=== PATIENT | male | born 1960 | race Caucasian/White ===

== ENCOUNTER 2022-08-24 12:05 | Emergency (ER) | payer OTHER ==
[~2022-08-24] VITALS: Ht 167.6 cm; Wt 81.6 kg
[2022-08-24 12:15] VITALS: BP 146/103
--- NOTE | 2022-08-24 13:15 | NUR ---
PT SEEN BY DR VILLARREAL AT BEDSIDE
[2022-08-24] MEDS ORDERED: SULF1TAB48 PO (13:29)
[2022-08-24] MEDS ORDERED: CEPH500C2 PO (13:29)
[2022-08-24] MEDS ORDERED: IBUP-1955 PO (13:29)
--- NOTE | 2022-08-24 13:43 | NUR ---
Patient discharged to home in stable condition. Written and verbal after care instructions given. Patient verbalizes understanding of instruction.
== END 2022-08-24 13:43 | disposition home or self-care (01) ==
LOC: ER 12:12
DX: S00.86XA Insect bite (nonvenomous) of other part of head, initial encounter (principal); S20.469A Insect bite (nonvenomous) of unspecified back wall of thorax, initial encounter; L03.211 Cellulitis of face; L03.312 Cellulitis of back [any part except buttock and flank]; L02.01 Cutaneous abscess of face; L02.212 Cutaneous abscess of back [any part, except buttock and flank]; I10 Essential (primary) hypertension; Z79.899 Other long term (current) drug therapy; W57.XXXA Bitten or stung by nonvenomous insect and other nonvenomous arthropods, initial encounter; Y93.89 Activity, other specified; Y92.89 Other specified places as the place of occurrence of the external cause; Y99.8 Other external cause status

== ENCOUNTER 2022-09-30 05:18 | Inpatient (IN) | payer OTHER ==
[~2022-09-30] VITALS: Ht 170.2 cm; Wt 86.6 kg
[~2022-09-30 05:18] MED LIST: CEPH500C2 PO; IBUP-1955 PO; SULF1TAB48 PO
--- NOTE | 2022-09-30 06:10 | NUR ---
BIBWIFE. MID UPPER BACK WOUND WITH YELLOW DISCHARGE X AUG 21. ON CLYNDAMYCIN YESTERDAY. PT IS ALERT, AMBULATORY. ABLE TO MAKE NEEDS KNOWN. PLACED COMFORTABLY IN BED. VITALS CHECKED
[2022-09-30] MEDS ORDERED: ONDANSETRON HCL/PF 4 MG/2 ML VIAL ONE (06:39)
--- NOTE | 2022-09-30 06:51 | NUR ---
COVID AND MRSA SWAB DONE AND SENT TO LAB
--- NOTE | 2022-09-30 06:56 | NUR ---
WOUND CULTURE DONE AT MIDBACK THEN SENT TO LAB
--- NOTE | 2022-09-30 06:56 | NUR ---
EKG DONE AT BEDSIDE
[2022-09-30] MEDS ORDERED: PIPERACILLIN /TAZOBACTAM 3.375 G VIAL IV ONE (06:58)
[2022-09-30] MEDS ORDERED: IV NS 0.9% 1,000 ML IV ONE (07:00)
[2022-09-30] MEDS ORDERED: PIPERACILLIN /TAZOBACTAM 3.375 G in IV D5W 50 ML IV ONE (07:00)
[2022-09-30] MEDS ORDERED: VANCOMYCIN 1 GM in IV D5W 250 ML IV ONE (07:00)
[2022-09-30] MEDS ORDERED: ONDANSETRON HCL/PF 4 MG/2 ML VIAL IV ONE (07:00)
[2022-09-30 07:27] LABS: BASOPHILS % (AUTO) 0.1 % (0.0-2.0); HEMATOCRIT 21 % (39-51); LYMPHOCYTES # (AUTO) 0.8 K/uL (0.8-4.8); LYMPHOCYTES % (AUTO) 6.7 % (20.0-44.0); MEAN CORPUSCULAR HGB CONC 33 g/dl (31.0-36.0); MEAN CORPUSCULAR VOLUME 97 fL (80-96); MONOCYTES # (AUTO) 0.9 K/uL (0.1-1.30); MONOCYTES % (AUTO) 8.1 % (2.0-12.0); NEUTROPHILS # (AUTO) 9.8 K/uL (1.8-8.9); NEUTROPHILS % (AUTO) 85.1 % (43.0-81.0); PLATELET COUNT (AUTO) 186 K/uL (150-450); RED BLOOD CELL COUNT(AUTO) 2.15 MIL/uL (4.5-6.0); WHITE BLOOD COUNT (AUTO) 11.5 K/uL (4.3-11.0)
[2022-09-30 07:33] LABS: HEMOGLOBIN 6.9 g/dL (13.5-17.5)
--- NOTE | 2022-09-30 07:33 | NUR ---
hemoglobin 6.9 , made aware
[2022-09-30 07:40] LABS: BILIRUBIN,DIRECT 0.1 mg/dL (0.0-0.2); BILIRUBIN,TOTAL 0.3 mg/dL (0.2-1.0); CREATININE 0.3 mg/dL (0.6-1.3); TOTAL PROTEIN, SERUM 3.3 g/dL (6.4-8.2)
[2022-09-30 07:47] LABS: ALBUMIN 1.2 g/dL (3.4-5.0); CALCIUM, SERUM 4.4 mg/dL (8.5-10.1); POTASSIUM 1.7 mmol/L (3.5-5.1)
[2022-09-30] MEDS ORDERED: LISI20TA30 PO (07:59)
[2022-09-30] MEDS ORDERED: SIMV-46 PO (07:59)
--- NOTE | 2022-09-30 08:03 | NUR ---
ordered to redraw blood
[2022-09-30 08:14] LABS: MAGNESIUM 2.2 mg/dL (1.8-2.4); PHOSPHORUS 3.2 mg/dL (2.5-4.9)
--- NOTE | 2022-09-30 08:33 | NUR ---
JOB FROM [facility] [phone] OPTION 2
--- NOTE | 2022-09-30 08:46 | NUR ---
PATIENT GOING TO ROOM 109
--- NOTE | 2022-09-30 08:53 | NUR ---
ADMITTING MADE AWARE.
--- NOTE | 2022-09-30 09:07 | NUR ---
REPORT GIVEN TO EFRAÍN MCKENZIE
[2022-09-30 09:29] LABS: BASOPHILS % (AUTO) 0.2 % (0.0-2.0); EOSINOPHILS % (AUTO) 0.1 % (0.0-6.0); HEMATOCRIT 36 % (39-51); LYMPHOCYTES # (AUTO) 1.4 K/uL (0.8-4.8); LYMPHOCYTES % (AUTO) 7.2 % (20.0-44.0); MEAN CORPUSCULAR HGB CONC 33 g/dl (31.0-36.0); MEAN CORPUSCULAR VOLUME 96 fL (80-96); MONOCYTES # (AUTO) 1.5 K/uL (0.1-1.30); MONOCYTES % (AUTO) 7.9 % (2.0-12.0); NEUTROPHILS % (AUTO) 84.6 % (43.0-81.0); PLATELET COUNT (AUTO) 315 K/uL (150-450); RED BLOOD CELL COUNT(AUTO) 3.71 MIL/uL (4.5-6.0); WHITE BLOOD COUNT (AUTO) 18.9 K/uL (4.3-11.0)
--- NOTE | 2022-09-30 09:30 | NUR ---
waiting for repeat blood works results requested by ER md . hold the transfer until resulted
[2022-09-30 09:54] LABS: HEMOGLOBIN 11.8 g/dL (13.5-17.5)
[2022-09-30 10:38] LABS: BILIRUBIN,TOTAL 0.7 mg/dL (0.2-1.0); CREATININE 0.9 mg/dL (0.6-1.3); TOTAL PROTEIN, SERUM 7.1 g/dL (6.4-8.2)
--- NOTE | 2022-09-30 10:45 | NUR ---
repeat blood works resulted , made aware of the results, pt ready to be transfer to inpatient room
[2022-09-30 10:48] LABS: POTASSIUM 3.8 mmol/L (3.5-5.1)
[2022-09-30 10:49] LABS: CALCIUM, SERUM 8.4 mg/dL (8.5-10.1)
[2022-09-30 11:03] LABS: ALBUMIN 2.6 g/dL (3.4-5.0)
--- NOTE | 2022-09-30 11:24 | NUR ---
Patient transferred to [facility]-, report given to MAGALY Paul. All care endorsed.
--- NOTE | 2022-09-30 12:57 | NUR ---
WOUND CARE CONSULT: PT PRESENTS WITH PAINFUL RAISED RED LESION WITH PURULENT DRAINAGE, PRESENT ON ADMISSION. DR GREENE CALLED FOR SURGICAL CONSULT. IN AGREEMENT WITH PLAN OF CARE.
[2022-09-30] MEDS ORDERED: MAG HYDROX/AL HYDROX/SIMETH 30 ML UDC PO PRN (13:00)
[2022-09-30] MEDS ORDERED: Z GUARD REMEDY 4 OZ OINT TP PRN (13:00)
[2022-09-30] MEDS ORDERED: ONDANSETRON HCL/PF 4 MG/2 ML VIAL IVP PRN (13:00)
[2022-09-30] MEDS ORDERED: ACETAMINOPHEN 325 MG TABLET PO PRN (13:00)
[2022-09-30] MEDS: ZOSYN IVPB 3.375 G in IV D5W 50ml IV SCH ×2 (14:31→18:02)
[2022-09-30] MEDS: IV NS 0.9% 1,000 ML IV PRN (14:31)
[2022-09-30] MEDS: ENOXAPARIN SODIUM 40 MG/0.4 ML DISP.SYRIN SQ SCH (14:33)
[2022-09-30 16:00] VITALS: BP 137/84
--- NOTE | 2022-09-30 18:29 | NUR ---
RN CLOSING NOTES PATIENT RESTING IN BED. ALERT AND ORIENTED X 4. ON ROOM AIR, NO SOB OR RESPIRATORY DISTRESS. IV ACCESS LEFT HAND 18G RUNNING NS AT 75/HR. SAFETY MEASURES IN PLACE PER HOSPITAL POLICY. CALL LIGHT WITHIN REACH. WILL ENDORSE TO DISPLAY MECHANIC RN.
--- NOTE | 2022-09-30 19:30 | NUR ---
RN NOTED Received patient in bed, AO x 4, in no acute distress, breathing unlabored, saturation at 98% on room air, HR is 94. IV line at L Hand 18g patent and flushing well, NS infusing at 75 ml/hr. Noted wound at upper back with moderate amount of yellowish drainage, dressing in place. Safety measures in place, bed is locked and at lowest position, HOB elevated, call light within reach of patient. Will cont to monitor and reassess
[2022-09-30 20:00] VITALS: BP 120/67
[2022-09-30] MEDS: VANCOMYCIN 1.25 GM in IV D5W 250 ML IV SCH (20:10)
[2022-09-30] MEDS: ZOLPIDEM TARTRATE 5 MG TABLET PO PRN (21:28)
[2022-10-01] MEDS: ZOSYN IVPB 3.375 G in IV D5W 50ml IV SCH ×4 (00:03→18:51)
[2022-10-01 04:00] VITALS: BP 136/83
[2022-10-01] MEDS ORDERED: MUPIROCIN OINT 2% 22 GM TUBE ONE (05:30)
[2022-10-01] MEDS: MUPIROCIN OINT 2% 22 GM TUBE NS SCH ×3 (05:35→20:09)
[2022-10-01 05:51] LABS: BASOPHILS % (AUTO) 0.1 % (0.0-2.0); EOSINOPHILS % (AUTO) 0.1 % (0.0-6.0); HEMATOCRIT 35 % (39-51); HEMOGLOBIN 11.3 g/dL (13.5-17.5); LYMPHOCYTES # (AUTO) 1.1 K/uL (0.8-4.8); LYMPHOCYTES % (AUTO) 6.4 % (20.0-44.0); MEAN CORPUSCULAR HGB CONC 33 g/dl (31.0-36.0); MEAN CORPUSCULAR VOLUME 96 fL (80-96); MONOCYTES # (AUTO) 1.5 K/uL (0.1-1.30); MONOCYTES % (AUTO) 8.8 % (2.0-12.0); NEUTROPHILS # (AUTO) 14.3 K/uL (1.8-8.9); NEUTROPHILS % (AUTO) 84.6 % (43.0-81.0); PLATELET COUNT (AUTO) 314 K/uL (150-450); RED BLOOD CELL COUNT(AUTO) 3.58 MIL/uL (4.5-6.0)
[2022-10-01 06:03] LABS: CALCIUM, SERUM 8.4 mg/dL (8.5-10.1); MAGNESIUM 2.3 mg/dL (1.8-2.4); PHOSPHORUS 3.1 mg/dL (2.5-4.9); POTASSIUM 4.2 mmol/L (3.5-5.1)
[2022-10-01] MEDS: IV NS 0.9% 1,000 ML IV PRN (06:25)
--- NOTE | 2022-10-01 07:15 | NUR ---
RN OPENING NOTE PATIENT RESTING IN A BED. ALERT AND ORIENTED X 4. ON ROOM AIR, NO SOB OR RESPIRATORY DISTRESS. IV ACCESS LEFT HAND 18G, FLUSHES WELL. SAFETY MEASURES IN PLACE PER HOSPITAL POLICY. CALL LIGHT WITHIN REACH. WILL CONTINUE TO MONITOR.
[2022-10-01] MEDS: PANTOPRAZOLE 40 MG TABLET.DR PO SCH (07:20)
[2022-10-01 08:00] VITALS: BP 126/71
[2022-10-01] MEDS: LISINOPRIL (20MG) 20 MG TABLET PO SCH (09:19)
[2022-10-01] MEDS: VANCOMYCIN 1.25 GM in IV D5W 250 ML IV SCH (09:21)
[2022-10-01] MEDS: ENOXAPARIN SODIUM 40 MG/0.4 ML DISP.SYRIN SQ SCH (12:30)
[2022-10-01 16:00] VITALS: BP 121/75
--- NOTE | 2022-10-01 16:00 | NUR ---
GOT A CALL FROM [facility] RE: PTs MERSA RESULT POSITIVE. FROM OUR LAB:PTs CULTURE CAME BACK POSITIVE FOR COCCI GRAM+
[2022-10-01] MEDS: SIMVASTATIN 20 MG TABLET PO SCH (17:46)
--- NOTE | 2022-10-01 18:48 | NUR ---
RN CLOSING NOTE PATIENT RESTING IN BED. ALERT AND ORIENTED X 4. ON ROOM AIR, NO SOB OR RESPIRATORY DISTRESS. IV ACCESS LEFT HAND 18G, FLUSHES WELL. SAFETY MEASURES IN PLACE PER HOSPITAL POLICY. CALL LIGHT WITHIN REACH. WILL ENDORSE TO FIELD MARKETING DIRECTOR RN.
[2022-10-01 20:00] VITALS: BP 127/68
[2022-10-01] MEDS: VANCOMYCIN 1 GM in IV D5W 250 ML IV SCH (20:04)
[2022-10-01] MEDS: HYDROCODONE/APAP 5/325MG TABLET PO PRN (20:09)
--- NOTE | 2022-10-01 20:10 | NUR ---
KISHOR/BILL CLERK PT C/O OF PAIN TO BACK, 1 TAB NORCO WAS GIVEN FOR PAIN. WILL MONITOR THIS
[2022-10-02] MEDS: ZOSYN IVPB 3.375 G in IV D5W 50ml IV SCH ×4 (01:07→18:02)
[2022-10-02] MEDS: IV NS 0.9% 1,000 ML IV PRN ×3 (02:18→18:03)
[2022-10-02 04:00] VITALS: BP 121/76
--- NOTE | 2022-10-02 04:57 | NUR ---
KISHOR/PAPER AND PRINTS RESTORER PT'S BROTHER CALLED [facility], ASKED FOR UPDATE. THIS WAS GIVEN.
[2022-10-02] MEDS ORDERED: diphenhydrAMINE HCL 50 MG/ML VIAL IV ONE ×2 (06:00→06:30)
[2022-10-02] MEDS: HYDROCODONE/APAP 5/325MG TABLET PO PRN (06:09)
--- NOTE | 2022-10-02 06:32 | NUR ---
KISHOR/SENIOR FIRE PROTECTION ENGINEER PT C/O OF PAIN GAVE NORCO FOR PAIN RATED 10/10. AIMEE GRULLON PT PT EXPRESSED CONCERN FOR SWELLING THAT IS GOING UP NECK, GAVE ONE TIME BENADRYL.
[2022-10-02] MEDS: PANTOPRAZOLE 40 MG TABLET.DR PO SCH (06:43)
--- NOTE | 2022-10-02 06:45 | NUR ---
KISHOR/BACKEND TESTER PT REFUSED BENADRYL AT THIS TIME
[2022-10-02 07:09] LABS: BASOPHILS % (AUTO) 0.2 % (0.0-2.0); EOSINOPHILS % (AUTO) 0.6 % (0.0-6.0); HEMATOCRIT 34 % (39-51); LYMPHOCYTES # (AUTO) 1.2 K/uL (0.8-4.8); LYMPHOCYTES % (AUTO) 8.9 % (20.0-44.0); MEAN CORPUSCULAR HGB CONC 33 g/dl (31.0-36.0); MEAN CORPUSCULAR VOLUME 96 fL (80-96); MONOCYTES # (AUTO) 1.3 K/uL (0.1-1.30); MONOCYTES % (AUTO) 9.2 % (2.0-12.0); NEUTROPHILS # (AUTO) 11.3 K/uL (1.8-8.9); NEUTROPHILS % (AUTO) 81.1 % (43.0-81.0); PLATELET COUNT (AUTO) 364 K/uL (150-450); RED BLOOD CELL COUNT(AUTO) 3.52 MIL/uL (4.5-6.0)
--- NOTE | 2022-10-02 07:20 | NUR ---
RN OPENING NOTE PATIENT RESTING IN A BED. ALERT AND ORIENTED X 4. ON ROOM AIR, NO SOB OR RESPIRATORY DISTRESS. GOT REPORT FROM LITHOGRAPHIC PRESS OPERATOR APPRENTICE THAT PT HAS MILD NECK SWELLING RAISING UP FROM AFFECTED UPPER BACK WOUND, AND PT REFUSED GET BENADRYL PRESCRIBED TO HIM PRN. PER PT CONDITION IS NOW IMPROVING, WILL NOTIFY THE DOCTOR AND CONTINUE TO MONITOR. IV ACCESS LEFT HAND 18G, FLUSHES WELL. SAFETY MEASURES IN PLACE PER HOSPITAL POLICY. CALL LIGHT WITHIN REACH.
[2022-10-02 07:28] LABS: CALCIUM, SERUM 8.6 mg/dL (8.5-10.1); CREATININE 0.9 mg/dL (0.6-1.3); MAGNESIUM 2.6 mg/dL (1.8-2.4); PHOSPHORUS 3.1 mg/dL (2.5-4.9); POTASSIUM 3.9 mmol/L (3.5-5.1)
[2022-10-02 08:03] VITALS: BP 119/73
[2022-10-02] MEDS: LISINOPRIL (20MG) 20 MG TABLET PO SCH (09:09)
[2022-10-02] MEDS: VANCOMYCIN 1 GM in IV D5W 250 ML IV SCH (09:09)
[2022-10-02] MEDS: MUPIROCIN OINT 2% 22 GM TUBE NS SCH ×2 (09:09→21:40)
[2022-10-02] MEDS ORDERED: DEXTROSE 50%-WATER 50 ML DISP.SYRIN IV PRN (10:00)
[2022-10-02] MEDS: BLOOD SUGAR DIAGNOSTIC 1 EACH STRIP IN SCH ×3 (11:24→21:41)
--- NOTE | 2022-10-02 12:00 | NUR ---
PATIENT BEEN SEEN BY DR RUIZ, AND SCHEDULED FOR INCISION DRAINAGE AND DEBRIDEMENT FOR TOMORROW. PT WILL SIGN CONSENT FOR PROCEDURE AND ANAESTHESIA, NPO AFTER MIDNIGHT.
[2022-10-02] MEDS: ENOXAPARIN SODIUM 40 MG/0.4 ML DISP.SYRIN SQ SCH (13:00)
--- NOTE | 2022-10-02 13:30 | NUR ---
HOLD ROMI D/T TOMORROWS PROCEDURE.
[2022-10-02 15:48] LABS: THYROID STIMULATING HORMONE 0.93 uIU/mL (0.358-3.74)
[2022-10-02 15:54] LABS: D-DIMER 1.31 mg/L(FEU (0.17-0.50)
[2022-10-02 16:03] VITALS: BP 122/69
[2022-10-02] MEDS: SIMVASTATIN 20 MG TABLET PO SCH (17:05)
--- NOTE | 2022-10-02 18:58 | NUR ---
RN CLOSING NOTE PATIENT RESTING IN BED. ALERT AND ORIENTED X 4. ON ROOM AIR, NO SOB OR RESPIRATORY DISTRESS. IV ACCESS LEFT HAND 18G, FLUSHES WELL. PATIENT SCHEDULED FOR INCISION AND DRAINAGE, POSSIBLE DEBRIDEMENT FOR TOMORROW AM, ALSO FOR CT CHEST AND ABDOMEN PRIOR TO PROCEDURE. NPO AFTER MIDNIGHT, DO NOT ADMINISTER LOVENOX. WILL ENDORSE TO HIGH TENSION TESTER RN.
--- NOTE | 2022-10-02 19:40 | NUR ---
RN OPENING NOTE Received patient in bed, A/O x 4, in no acute distress, breathing unlabored, saturation at 98% on room air, IV line at L Hand 18g patent and flushing well, NS infusing at 75 ml/hr. Noted wound at upper back with moderate amount of yellowish drainage, dressing in place. Safety measures in place, bed is locked and at lowest position, HOB elevated, call light within reach of patient. Will cont to monitor throughout the shift.
[2022-10-02] MEDS: VANCOMYCIN 1.25 GM in IV D5W 250 ML IV SCH (21:43)
[2022-10-02] MEDS: INSULIN REGULAR, HUMAN 100 UNIT/ML 3 ML VIAL SQ PRN (21:58)
[2022-10-02] MEDS: ZOLPIDEM TARTRATE 5 MG TABLET PO PRN (22:30)
[2022-10-02] MEDS: MAGNESIUM HYDROXIDE 30 ML UDC PO PRN (22:33)
[2022-10-03] VITALS: BP 109/68
[2022-10-03] MEDS: ZOSYN IVPB 3.375 G in IV D5W 50ml IV SCH ×4 (01:13→18:01)
--- NOTE | 2022-10-03 07:00 | NUR ---
RN CLOSING NOTE Patient in bed, A/O x 4, in no acute distress, breathing unlabored, saturation at 98% on room air, IV line at L Hand 18g patent and flushing well, NS infusing at 75 ml/hr. All due meds given, Kept pt NPO post mn, Safety measures in place, bed is locked and at lowest position, HOB elevated, call light within reach of patient. Will endorse to am shift nurse for continuity of care.
--- NOTE | 2022-10-03 07:22 | NUR ---
RN OPENING NOTES: RECEIVED PATIENT IN BED, AWAKE, ALERT ORIENTED X 4, NO RESPIRATORY DISTRESS NOTED, BREATHING EVEN AND UNLABORED. ON RA WITH OXYGEN SATURATION OF 97%. HAS IV ACCESS ON LEFT UPPER ARM, PATENT AND FLUSHES WELL, SITE WITH NO S/S INFILTRATION NOTED. ALL SAFETY MEASURES IN PLACE. PATIENT REMAINS NPO FOR HIS PROCEDURE TODAY AND IS A LITTLE BIT ANXIOUS, REASSURED PATIENT. BED LOCKED AND IN LOWEST POSITION WITH BED ALARM ON. CALL LIGHT WITHIN REACH AND INSTRUCTED PATIENT TO PLEASE CALL FOR ASSISTANCE NEEDED. WILL CONTINUE TO MONITOR PATIENT THROUGHOUT SHIFT.
[2022-10-03] MEDS: PANTOPRAZOLE 40 MG TABLET.DR PO SCH (07:30)
[2022-10-03 07:37] LABS: BASOPHILS % (AUTO) 0.4 % (0.0-2.0); EOSINOPHILS % (AUTO) 1.2 % (0.0-6.0); HEMATOCRIT 33 % (39-51); HEMOGLOBIN 10.8 g/dL (13.5-17.5); LYMPHOCYTES # (AUTO) 1.8 K/uL (0.8-4.8); LYMPHOCYTES % (AUTO) 18.5 % (20.0-44.0); MEAN CORPUSCULAR HGB CONC 33 g/dl (31.0-36.0); MEAN CORPUSCULAR VOLUME 95 fL (80-96); MONOCYTES # (AUTO) 0.9 K/uL (0.1-1.30); MONOCYTES % (AUTO) 9.3 % (2.0-12.0); NEUTROPHILS # (AUTO) 6.9 K/uL (1.8-8.9); NEUTROPHILS % (AUTO) 70.6 % (43.0-81.0); PLATELET COUNT (AUTO) 388 K/uL (150-450); RED BLOOD CELL COUNT(AUTO) 3.41 MIL/uL (4.5-6.0); WHITE BLOOD COUNT (AUTO) 9.8 K/uL (4.3-11.0)
[2022-10-03 08:00] VITALS: BP 147/79
[2022-10-03 08:05] LABS: CALCIUM, SERUM 8.5 mg/dL (8.5-10.1); CREATININE 0.8 mg/dL (0.6-1.3); MAGNESIUM 2.4 mg/dL (1.8-2.4); PHOSPHORUS 3.3 mg/dL (2.5-4.9); POTASSIUM 3.7 mmol/L (3.5-5.1)
[2022-10-03] MEDS: BLOOD SUGAR DIAGNOSTIC 1 EACH STRIP IN SCH ×4 (08:08→21:51)
[2022-10-03] MEDS: LISINOPRIL (20MG) 20 MG TABLET PO SCH (08:58)
[2022-10-03] MEDS: VANCOMYCIN 1.25 GM in IV D5W 250 ML IV SCH ×2 (09:00→21:21)
--- NOTE | 2022-10-03 09:00 | NUR ---
SPOKE WITH RITA AT THE PHARMACY AND SAID THAT IT IS OK TO GIVEN VANCO 1.25 GM PREVIOUSLY ORDERED
[2022-10-03] MEDS: MUPIROCIN OINT 2% 22 GM TUBE NS SCH ×2 (09:25→21:21)
[2022-10-03 10:07] LABS: IMMUNOGLOBULIN A, SERUM 252 mg/dL (61-437); IMMUNOGLOBULIN G, SERUM 695 mg/dL (603-1613); IMMUNOGLOBULIN M, SERUM 36 mg/dL (20-172)
--- NOTE | 2022-10-03 11:08 | NUR ---
PATIENT WAS PICKED UP FOR HIS PROCEDURE TODAY AND LEFT VIA HOSPITAL BED ACCOMPANIED BY TWO NURSES. PATENT LEFT IN NO ACUTE DISTRESS
[2022-10-03] MEDS ORDERED: FENTANYL PF 100MCG/2ML AMPUL ONE (11:28)
[2022-10-03] MEDS ORDERED: MIDAZOLAM HCL 2 MG/2ML VIAL ONE (11:28)
[2022-10-03] MEDS ORDERED: LIDOCAINE 1% INJ 50 ML MDV IJ ONE (11:47)
[2022-10-03] MEDS ORDERED: BUPIVACAINE MPF 0.5% W/EPI INJ 30 ML VIAL ONE (11:47)
[2022-10-03] MEDS ORDERED: PHYTONADIONE INJ 10 MG/1 ML AMPUL ONE (12:13)
[2022-10-03] MEDS ORDERED: HYDROMORPHONE 1 MG/1 ML DISP.SYRIN ONE ×2 (12:22→12:38)
[2022-10-03] MEDS: ENOXAPARIN SODIUM 40 MG/0.4 ML DISP.SYRIN SQ SCH (13:00)
--- NOTE | 2022-10-03 13:35 | NUR ---
RECEIVED POST OP ORDERS FOR WOUND PACK TO BE CHANGED AFTER 72 HOURS AND RESUME PRE-OP DIET. ORDERS NOTED AND CARRIED OUT
--- NOTE | 2022-10-03 13:35 | NUR ---
PATIENT CAME BACK AFTER THE PROCEDURE. AWAKE, ALERT, ORIENTED X 4. DRESSING ON THE PATIENT'S BACK IS CLEAN AND DRY. V/S FOLLOWS 137/79, HR 72 TEMP 97.2, ON RA WITH OXYGEN SATURATION OF 96%. PATIENT REPOSITIONED FOR COMFORT.
[2022-10-03] MEDS: INSULIN REGULAR, HUMAN 100 UNIT/ML 3 ML VIAL SQ PRN ×3 (13:49→21:57)
--- NOTE | 2022-10-03 14:01 | NUR ---
DR CRAWLEY NOTIFIED TO HOLD OFF LOVENOX FOR NOW.
--- NOTE | 2022-10-03 14:31 | NUR ---
PATIENT HAS NOT HAD HI CT SCAN. CALLED RADIOLOGY @ EXT [id number], SPOKE WITH AKIN BUT UNABLE TO GIVE A TIME FRAME FOR PATIENT'S CT SCAN
--- NOTE | 2022-10-03 15:01 | NUR ---
PATIENT IS BEING PICKED UP TO HAVE HIS CT SCAN DONE,. PATIENT LEFT VIA WHEELCHAIR ACCOMPANIED BY TWO PERSONNEL VIA WHEELCHAIR. PATIENT IN NO ACUTE DISTRESS
[2022-10-03] MEDS ORDERED: IOHEXOL-300 100 ML VIAL IV ONE (15:03)
--- NOTE | 2022-10-03 15:36 | NUR ---
PATIENT'S BACK TO THE ROOM AND PLACED IN BED. PATIENT IN NO ACUTE DISTRESS NOTED.
[2022-10-03 16:00] VITALS: BP 141/84
[2022-10-03 17:06] LABS: *SPE A/G RATIO 0.7 (0.7-1.7); *SPE ALPHA-1-GLOBULIN 0.5 g/dL (0.0-0.4); *SPE ALPHA-2-GLOBULIN 1.4 g/dL (0.4-1.0); *SPE BETA GLOBULIN 1.2 g/dL (0.7-1.3); *SPE M-SPIKE Not Observed g/dL (Not Observed)
[2022-10-03] MEDS: SIMVASTATIN 20 MG TABLET PO SCH (17:12)
--- NOTE | 2022-10-03 18:47 | NUR ---
GIG TENDER CLOSING NOTES: PATIENT IN BED, AWAKE, ALERT ORIENTED X 4, NO RESPIRATORY DISTRESS NOTED THROUGHOUT SHIFT. REMAINS ON RA THE ENTIRE TIME WITH OXYGEN SATURATION OF 95-97%. NO C/O PAIN OR DISCOMFORT AT THIS TIME. IV ACCESS ON RIGHT FOREARM RUNNING WITH NS @ 75 ML/HR, IV SITE PATENT, WITH NO S/S INFILTRATION NOTED. PATIENT WAS ABLE TO TOLERATE HIS CARDIAC DIET PER PREVIOUS ORDER. DRESSING CLEAN AND DRY ON HIS RIGHT UPPER BACK, NO FEVER NOTED THE ENTIRE SHIFT. ALL SAFETY MEASURES IMPLEMENTED. BED LOCKED AND IN LOWEST POSITION WITH BED ALARM ON. CALL LIGHT WITHIN REACH. WILL ENDORSE TO INCOMING NURSE FOR CONTINUITY OF CARE.
[2022-10-03] MEDS: MAGNESIUM HYDROXIDE 30 ML UDC PO PRN (21:32)
[2022-10-04 00:04] VITALS: BP 135/86
[2022-10-04] MEDS: ZOSYN IVPB 3.375 G in IV D5W 50ml IV SCH ×4 (01:13→18:02)
[2022-10-04] MEDS: PANTOPRAZOLE 40 MG TABLET.DR PO SCH (06:35)
[2022-10-04 07:03] LABS: BASOPHILS % (AUTO) 0.3 % (0.0-2.0); HEMATOCRIT 30 % (39-51); LYMPHOCYTES # (AUTO) 2.6 K/uL (0.8-4.8); LYMPHOCYTES % (AUTO) 30.9 % (20.0-44.0); MEAN CORPUSCULAR HGB CONC 33 g/dl (31.0-36.0); MEAN CORPUSCULAR VOLUME 96 fL (80-96); MONOCYTES # (AUTO) 0.8 K/uL (0.1-1.30); MONOCYTES % (AUTO) 9.8 % (2.0-12.0); NEUTROPHILS # (AUTO) 4.8 K/uL (1.8-8.9); PLATELET COUNT (AUTO) 390 K/uL (150-450); RED BLOOD CELL COUNT(AUTO) 3.17 MIL/uL (4.5-6.0); WHITE BLOOD COUNT (AUTO) 8.3 K/uL (4.3-11.0)
[2022-10-04 07:10] LABS: CALCIUM, SERUM 8.4 mg/dL (8.5-10.1); CREATININE 0.9 mg/dL (0.6-1.3); MAGNESIUM 2.4 mg/dL (1.8-2.4); PHOSPHORUS 3.3 mg/dL (2.5-4.9); POTASSIUM 3.8 mmol/L (3.5-5.1)
--- NOTE | 2022-10-04 07:47 | NUR ---
WOUND CARE CONSULT: PT PRESENTS WITH SURGICAL DRESSING TO UPPER BACK WHICH IS NOT TO BE REMOVED TIL 10/06 PER SURGEON. BACK DRESSING IS DRY AND INTACT. WILL FOLLOW. MD IN AGREEMENT WITH PLAN OF CARE.
[2022-10-04 08:00] VITALS: BP 134/84
--- NOTE | 2022-10-04 08:22 | NUR ---
ms rn note patient in bed, alert , oriented on ra no sob noted at this time, on ivf as ordered, bed in lowest and locked position , seen by wound nurse call light within reach hl rt ga intact and flushed well, will cont to monitor, no c]o pain or discomfort at this time
[2022-10-04] MEDS: MUPIROCIN OINT 2% 22 GM TUBE NS SCH ×2 (08:46→20:48)
[2022-10-04] MEDS: LISINOPRIL (20MG) 20 MG TABLET PO SCH (08:47)
[2022-10-04] MEDS: BLOOD SUGAR DIAGNOSTIC 1 EACH STRIP IN SCH ×4 (08:48→22:33)
[2022-10-04] MEDS: VANCOMYCIN 1.25 GM in IV D5W 250 ML IV SCH ×2 (09:16→20:47)
--- NOTE | 2022-10-04 11:10 | NUR ---
AVIONICS SYSTEM ENGINEER NOTE TYLENOL PO GIVEN C\O RT UPPER BACK PAIN 6\10- ,ALSO WOUND CARE NURSE AT BEDSIDE SEEN PATIENT ,WILL MONITOR
[2022-10-04] MEDS: INSULIN REGULAR, HUMAN 100 UNIT/ML 3 ML VIAL SQ PRN ×2 (12:09→22:35)
[2022-10-04] MEDS: ENOXAPARIN SODIUM 40 MG/0.4 ML DISP.SYRIN SQ SCH (12:50)
[2022-10-04] MEDS: ALPRAZOLAM 0.25 MG TABLET PO PRN (12:51)
--- NOTE | 2022-10-04 12:54 | NUR ---
ms rn note Xanax po 0.5 mg po given as ordered boat deckhand at bedside blood cx done
--- NOTE | 2022-10-04 15:00 | NUR ---
MS RN NOTE ROUNDS MADE . ALL NEEDS ATTENDED, LINEN CHANGED ,UP ON CHAIR WILL CONT TO MONITOR WOUND CARE DONE
[2022-10-04] MEDS: IV NS 0.9% 1,000 ML IV PRN (15:20)
[2022-10-04 16:00] VITALS: BP 142/70
[2022-10-04] MEDS: SIMVASTATIN 20 MG TABLET PO SCH (18:06)
--- NOTE | 2022-10-04 18:39 | NUR ---
MS RN OTE PATIENT IN BED, HAVING DINNER ,NO C\O PAIN OR DISCOMFORT, NO SOB NOTED AT THIS TIME CALL LIGHT WITHIN REACH , ALL NEEDS ATTENDED
--- NOTE | 2022-10-04 19:37 | NUR ---
MS RN OPENING NOTE RECEIVED PT AWAKE IN BED. A/O X4 AND ABLE TO MAKE NEEDS KNOWN. PT STABLE ON ROOM AIR. NO SOB OR S/S OF RESPIRATORY DISTRESS. BREATHING EVEN AND UNLABORED. IV ACCESS GUS 20G, INTACT AND PATENT, RUNNING NS @ 75 ML/HR. SAFETY PRECAUTIONS IN PLACE. BED IN LOWEST LOCKED POSITION, HOB ELEVATED, SIDE RAILS UP X2, AND CALL LIGHT AND TABLE WITHIN REACH. ALL NEEDS MET AT THIS TIME.
[2022-10-05] VITALS: BP 120/74
[2022-10-05] MEDS: ZOSYN IVPB 3.375 G in IV D5W 50ml IV SCH ×4 (01:10→18:53)
[2022-10-05 06:07] LABS: CANCER AG, 15-3 4.1 U/mL (0.0-25.0)
[2022-10-05 06:40] LABS: BASOPHILS # (AUTO) 0.1 K/uL (0.0-0.2); BASOPHILS % (AUTO) 0.8 % (0.0-2.0); EOSINOPHILS % (AUTO) 1.9 % (0.0-6.0); HEMATOCRIT 33 % (39-51); LYMPHOCYTES # (AUTO) 2.4 K/uL (0.8-4.8); LYMPHOCYTES % (AUTO) 31.9 % (20.0-44.0); MEAN CORPUSCULAR HGB CONC 33 g/dl (31.0-36.0); MEAN CORPUSCULAR VOLUME 96 fL (80-96); MONOCYTES # (AUTO) 0.7 K/uL (0.1-1.30); MONOCYTES % (AUTO) 8.7 % (2.0-12.0); NEUTROPHILS # (AUTO) 4.3 K/uL (1.8-8.9); NEUTROPHILS % (AUTO) 56.7 % (43.0-81.0); PLATELET COUNT (AUTO) 436 K/uL (150-450); RED BLOOD CELL COUNT(AUTO) 3.49 MIL/uL (4.5-6.0); WHITE BLOOD COUNT (AUTO) 7.6 K/uL (4.3-11.0)
--- NOTE | 2022-10-05 06:49 | NUR ---
MS RN CLOSING NOTE PT AWAKE IN BED. A/O X4 AND ABLE TO MAKE NEEDS KNOWN. PT STABLE ON ROOM AIR. NO SOB OR S/S OF RESPIRATORY DISTRESS. BREATHING EVEN AND UNLABORED. IV ACCESS GUS 20G, INTACT AND PATENT, RUNNING NS @ 75 ML/HR. ALL DUE MEDS GIVEN ORDERED. SAFETY PRECAUTIONS IN PLACE AT ALL TIMES. BED IN LOWEST LOCKED POSITION, HOB ELEVATED, SIDE RAILS UP X2, AND CALL LIGHT AND TABLE WITHIN REACH. ALL NEEDS MET AT THIS TIME AND WILL ENDORSE TO ONCOMING NURSE FOR MARIA TERESA.
[2022-10-05 06:53] LABS: CALCIUM, SERUM 8.6 mg/dL (8.5-10.1); CREATININE 0.9 mg/dL (0.6-1.3); POTASSIUM 4.2 mmol/L (3.5-5.1)
[2022-10-05] MEDS: PANTOPRAZOLE 40 MG TABLET.DR PO SCH (07:30)
[2022-10-05] MEDS: BLOOD SUGAR DIAGNOSTIC 1 EACH STRIP IN SCH ×4 (07:34→22:56)
[2022-10-05 08:00] VITALS: BP 110/65
[2022-10-05] MEDS: LISINOPRIL (20MG) 20 MG TABLET PO SCH (08:18)
[2022-10-05] MEDS: MUPIROCIN OINT 2% 22 GM TUBE NS SCH ×2 (08:18→21:40)
[2022-10-05] MEDS: PROSOURCE / PROSTAT (PYXIS) 30 ML UDC GT SCH ×2 (08:56→17:04)
[2022-10-05] MEDS: IV NS 0.9% 1,000 ML IV PRN (09:13)
[2022-10-05] MEDS: VANCOMYCIN 1.25 GM in IV D5W 250 ML IV SCH ×2 (09:17→21:38)
[2022-10-05] MEDS: INSULIN REGULAR, HUMAN 100 UNIT/ML 3 ML VIAL SQ PRN ×2 (11:18→22:55)
[2022-10-05] MEDS: ENOXAPARIN SODIUM 40 MG/0.4 ML DISP.SYRIN SQ SCH (12:05)
[2022-10-05 16:00] VITALS: BP 135/80
[2022-10-05] MEDS: SIMVASTATIN 20 MG TABLET PO SCH (17:18)
[2022-10-05] MEDS: ALPRAZOLAM 0.25 MG TABLET PO PRN (19:00)
--- NOTE | 2022-10-05 19:45 | NUR ---
MS RN OPENING NOTES RECEIVED PATIENT IN BED WATCHING TV AWAKE, ALERT AND ORIENTED. A/O X 4. NO S/S OF PAIN AT THIS TIME. ON RA, NO DISTRESS OR SHORTNESS OF BREATH NOTED. IV ACCESS LAC #20G RUNNING NS @ 75ML/HR, INFUSING WELL. FALL AND SAFETY MEASURES IN PLACE. BED ALARM ON, BED IN LOW AND LOCK POSITION. CALL LIGHT AND TRAY WITHIN EASY REACH. SIDE RAILS UP X 2. WILL CONTINUE WITH THE PLAN OF CARE.
[2022-10-06] VITALS: BP 135/86
[2022-10-06] MEDS: ZOSYN IVPB 3.375 G in IV D5W 50ml IV SCH ×2 (00:47→06:07)
--- NOTE | 2022-10-06 06:10 | NUR ---
RN NOTES- WOUND DRESSING CHANGE DONE WOUND CARE DONE. CLEANSED WITH NS, APPLIED MOISTENED AND DRY KERLIX ON THE WOUND THEN SECURED DRESSING USING ABD PAD. WILL ENDORSE TO THE NEXT SHIFT.
[2022-10-06 06:47] LABS: CALCIUM, SERUM 8.9 mg/dL (8.5-10.1); CREATININE 0.9 mg/dL (0.6-1.3); POTASSIUM 4.2 mmol/L (3.5-5.1)
[2022-10-06] MEDS: BLOOD SUGAR DIAGNOSTIC 1 EACH STRIP IN SCH ×4 (07:34→22:07)
[2022-10-06] MEDS: PANTOPRAZOLE 40 MG TABLET.DR PO SCH (07:34)
--- NOTE | 2022-10-06 07:48 | NUR ---
MS RN CLOSING NOTES PATIENT IN BED WATCHING TV AWAKE, ALERT AND ORIENTED. A/O X 4. NO S/S OF PAIN AT THIS TIME. ON RA, NO DISTRESS OR SHORTNESS OF BREATH NOTED. IV ACCESS LAC #20G RUNNING NS @ 75ML/HR, INFUSING WELL. ALL DUE MEDS AND IV GIVEN. WOUND DRESSING CHANGE DONE WITH THE HELP OF MS. FUENTES. FALL AND SAFETY MEASURES IN PLACE. BED ALARM ON, BED IN LOW AND LOCK POSITION. CALL LIGHT AND TRAY WITHIN EASY REACH. SIDE RAILS UP X 2. WILL ENDORSE TO THE NEXT SHIFT.
[2022-10-06 08:00] VITALS: BP 138/78
[2022-10-06] MEDS: LISINOPRIL (20MG) 20 MG TABLET PO SCH (08:04)
[2022-10-06] MEDS: PROSOURCE / PROSTAT (PYXIS) 30 ML UDC GT SCH ×2 (08:05→16:06)
[2022-10-06] MEDS: MUPIROCIN OINT 2% 22 GM TUBE NS SCH ×2 (08:05→21:21)
--- NOTE | 2022-10-06 08:30 | NUR ---
CONFIRMED WITH [facility] PHARMACIST TO GIVE VANCOMYCIN WITHOUT VANCO TROUGH LEVEL TODAY, VANCO TROUGH LEVEL WILL BE DONE TOMORROW.
[2022-10-06] MEDS: IV NS 0.9% 1,000 ML IV PRN (08:37)
[2022-10-06] MEDS: VANCOMYCIN 1.25 GM in IV D5W 250 ML IV SCH ×2 (08:50→21:21)
--- NOTE | 2022-10-06 09:52 | NUR ---
WOUND CARE CONSULT/FOLLOW UP: PT SEEN FOR SURGICAL SITE TO UPPER BACK. WOUND WAS IRRIGATED WITH NS, THEN PACKED WITH IODOFORM 1/2 INCH PACKING, COVERED WITH GAUZE, ABD PAD AND SECURED WITH PAPER TAPE. PT TOLERATED WELL. DISCUSSED SKIN PROTECTION AND WOUND CARE WITH NURSING STAFF. MD IN AGREEMENT WITH PLAN OF CARE.
[2022-10-06] MEDS: CEFTRIAXONE 1 G in IV D5W 50 ML IV SCH ×2 (10:22→10:48)
[2022-10-06] MEDS: INSULIN REGULAR, HUMAN 100 UNIT/ML 3 ML VIAL SQ PRN ×2 (11:15→22:08)
[2022-10-06] MEDS: ENOXAPARIN SODIUM 40 MG/0.4 ML DISP.SYRIN SQ SCH (12:03)
[2022-10-06 16:00] VITALS: BP 144/86
[2022-10-06] MEDS: SIMVASTATIN 20 MG TABLET PO SCH (17:03)
--- NOTE | 2022-10-06 19:04 | NUR ---
CLOSING NOTE PT AWAKE IN BED. A/O X4 AND ABLE TO MAKE NEEDS KNOWN. PT STABLE ON ROOM AIR. NO SOB OR S/S OF RESPIRATORY DISTRESS. BREATHING EVEN AND UNLABORED. IV ACCESS UGS 20G, INTACT AND PATENT, RUNNING NS @ 75 ML/HR. ALL DUE MEDS GIVEN ORDERED. SAFETY PRECAUTIONS IN PLACE AT ALL TIMES. BED IN LOWEST LOCKED POSITION, HOB ELEVATED, SIDE RAILS UP X2, AND CALL LIGHT AND TABLE WITHIN REACH. ALL NEEDS MET AT THIS TIME AND WILL ENDORSE TO ONCOMING NURSE FOR MARIA TERESA.
--- NOTE | 2022-10-06 19:30 | NUR ---
RN NOTE RECEIVED PT SITTING UP IN CHAIR, AWAKE/ALERT ORIENTED X4, VERBALLY RESPONSIVE. DENIES PAIN/DISCOMFORT AT THIS TIME. ON ROOM AIR, WELL TOLERATED, NO SOB, NO ACUTE RESP DISTRESS NOTED. IV ACCESS ON L AC #20 CLEAN, DRY AND PATENT, CURRENTLY INFUSING NS AT 75ML/HR, WELL RONAK. PT IS AMBULATORY. SAFETY/FALL PRECAUTIONS IMPLEMENTED AT ALL TIMES. CALL LIGHT WITHIN EASY REACH
[2022-10-07 04:00] VITALS: BP 133/86
[2022-10-07] MEDS: IV NS 0.9% 1,000 ML IV PRN ×2 (04:11→21:08)
[2022-10-07] MEDS: ALPRAZOLAM 0.25 MG TABLET PO PRN (04:18)
--- NOTE | 2022-10-07 06:15 | NUR ---
RN NOTE PT IN BED, CURRENTLY SLEEPING, EASILY AROUSABLE. REMAINS IN STABLE CONDITION THROUGHOUT THE SHIFT. NO SIGNIFICANT CHANGES NOTED. ALL DUE MEDICATIONS GIVEN ORDERED. ALL NEEDS ATTENDED. CALL LIGHT WITHIN EASY REACH.
[2022-10-07 06:36] LABS: BASOPHILS % (AUTO) 0.5 % (0.0-2.0); EOSINOPHILS % (AUTO) 2.4 % (0.0-6.0); HEMATOCRIT 35 % (39-51); HEMOGLOBIN 11.5 g/dL (13.5-17.5); LYMPHOCYTES # (AUTO) 2.5 K/uL (0.8-4.8); LYMPHOCYTES % (AUTO) 31.1 % (20.0-44.0); MEAN CORPUSCULAR HGB CONC 33 g/dl (31.0-36.0); MEAN CORPUSCULAR VOLUME 95 fL (80-96); MONOCYTES # (AUTO) 0.6 K/uL (0.1-1.30); MONOCYTES % (AUTO) 7.3 % (2.0-12.0); NEUTROPHILS # (AUTO) 4.7 K/uL (1.8-8.9); NEUTROPHILS % (AUTO) 58.7 % (43.0-81.0); PLATELET COUNT (AUTO) 469 K/uL (150-450); RED BLOOD CELL COUNT(AUTO) 3.64 MIL/uL (4.5-6.0)
[2022-10-07 07:02] LABS: CALCIUM, SERUM 8.9 mg/dL (8.5-10.1); CREATININE 0.9 mg/dL (0.6-1.3); POTASSIUM 4.2 mmol/L (3.5-5.1)
[2022-10-07] MEDS: BLOOD SUGAR DIAGNOSTIC 1 EACH STRIP IN SCH ×4 (07:30→21:14)
[2022-10-07] MEDS: PANTOPRAZOLE 40 MG TABLET.DR PO SCH (07:36)
[2022-10-07] MEDS: PROSOURCE / PROSTAT (PYXIS) 30 ML UDC GT SCH ×2 (07:56→16:44)
[2022-10-07] MEDS: LISINOPRIL (20MG) 20 MG TABLET PO SCH (07:57)
[2022-10-07 08:00] VITALS: BP 127/78
[2022-10-07] MEDS: VANCOMYCIN 1.25 GM in IV D5W 250 ML IV SCH ×2 (08:23→20:17)
--- NOTE | 2022-10-07 08:30 | NUR ---
WOUND CARE: PT FOLLOWED BY WOUND TEAM AT THIS TIME. SURGICAL WOUND MEASURES 4CM X 8CM X 2CM AND IS RED/PINK/YELLOW IN COLOR WITH SEROSANGUINOUS/PABLO DRAINAGE, NO ODOR. DAKINS PACKING WAS DONE PER SURGEON ORDER. PT TOLERATED WELL. IN AGREEMENT WITH PLAN OF CARE. Addendum: 10/07/22 at 0832 by MARY ANN PORTILLO WNDNU Amended: Links added.
[2022-10-07] MEDS: MUPIROCIN OINT 2% 22 GM TUBE NS SCH ×2 (08:31→21:11)
[2022-10-07] MEDS: DAKINS QUARTER STRENGTH (0.125%) 480 ML BOTTLE TOP SCH ×2 (08:32→21:11)
--- NOTE | 2022-10-07 08:33 | NUR ---
WOUND CARE NURSE APPLIED DAKINS AND DRESSING CHANGE ON UPPER BACK
[2022-10-07] MEDS: CEFTRIAXONE 1 G in IV D5W 50 ML IV SCH (10:21)
[2022-10-07] MEDS: ENOXAPARIN SODIUM 40 MG/0.4 ML DISP.SYRIN SQ SCH (12:01)
[2022-10-07] MEDS: CEFEPIME 1 GM in IV D5W 50 ML IV SCH (14:12)
[2022-10-07 16:25] VITALS: BP 124/80
[2022-10-07] MEDS: SIMVASTATIN 20 MG TABLET PO SCH (17:15)
[2022-10-07 20:00] VITALS: BP 121/80
[2022-10-07] MEDS: INSULIN REGULAR, HUMAN 100 UNIT/ML 3 ML VIAL SQ PRN (21:13)
--- NOTE | 2022-10-07 21:14 | NUR ---
ACCU CHECK Bld glucose 162mg/dl. Patient refused insulin SS parameters, education given verbalized understanding.
[2022-10-08] MEDS: ALPRAZOLAM 0.25 MG TABLET PO PRN (00:19)
--- NOTE | 2022-10-08 00:22 | NUR ---
ANXIETY Patient feeling anxious, unable to sleep, requesting Xanax. Patient stated, Xanax works better with him rather than Ambien for sleep. Given Xanax, will monitor behavior.
[2022-10-08] MEDS: CEFEPIME 1 GM in IV D5W 50 ML IV SCH ×2 (02:07→13:10)
[2022-10-08 04:00] VITALS: BP 123/82
--- NOTE | 2022-10-08 05:11 | NUR ---
END OF SHIFT REPORT Patient in bed, Alert Oriented x4. Oxygen sat high 90's in RA. IV LFA intact, IVF continuous. On IV abx. Afebrile. Back wound care done, patient no c/o pain. Ambulating independently. Plan for continue abx. dc to SNF for wound care. Will endorse to oncoming RN.
[2022-10-08 07:10] LABS: CALCIUM, SERUM 9.3 mg/dL (8.5-10.1); POTASSIUM 4.5 mmol/L (3.5-5.1)
--- NOTE | 2022-10-08 07:41 | NUR ---
RN OPENING NOTE PATIENT AWAKE IN BED RESTING, A/O X 4. NO S/S OF PAIN NOTED AT THIS TIME. ON ROOM AIR, BREATHING EVEN UNLABORED, NO DISTRESS OR SHORTNESS OF BREATH NOTED AT THIS TIME. IV ACCESS LFA #20G, INTACT PATENT AND FLUSHING WELL. FALL AND SAFETY MEASURES IN PLACE, BED ALARM ON, BED IN LOW AND LOCK POSITION, CALL LIGHT AND TABLE WITHIN EASY REACH, SIDE RAILS UP X2. WILL CONTINUE TO MONITOR.
[2022-10-08] MEDS: PANTOPRAZOLE 40 MG TABLET.DR PO SCH (07:49)
[2022-10-08] MEDS: BLOOD SUGAR DIAGNOSTIC 1 EACH STRIP IN SCH ×2 (07:56→11:46)
[2022-10-08 08:00] VITALS: BP 135/83
[2022-10-08 08:40] VITALS: BP 135/83
[2022-10-08] MEDS: LISINOPRIL (20MG) 20 MG TABLET PO SCH (08:40)
[2022-10-08] MEDS: PROSOURCE / PROSTAT (PYXIS) 30 ML UDC GT SCH (08:40)
[2022-10-08] MEDS: VANCOMYCIN 1.25 GM in IV D5W 250 ML IV SCH (08:40)
[2022-10-08] MEDS: DAKINS QUARTER STRENGTH (0.125%) 480 ML BOTTLE TOP SCH (08:41)
[2022-10-08] MEDS: ENOXAPARIN SODIUM 40 MG/0.4 ML DISP.SYRIN SQ SCH (12:48)
[2022-10-08] MEDS ORDERED: CEFE1FRO IV (13:17)
[2022-10-08] MEDS ORDERED: Prosource GT (13:17)
[2022-10-08] MEDS ORDERED: VANC1VIA34 XX (13:17)
[2022-10-08] MEDS ORDERED: ACET325T53 PO (13:17)
[2022-10-08] MEDS ORDERED: ALPR0.255 PO (13:17)
[2022-10-08] MEDS ORDERED: Hydrocodone/Apap 5/325MG PO (13:17)
[2022-10-08] MEDS ORDERED: SODI473S8 TOP (13:17)
[2022-10-08] MEDS ORDERED: VANC1VIA34 IV (13:17)
--- NOTE | 2022-10-08 15:49 | NUR ---
CRYSTAL SLICER NOTE PATIENT DISCHARGE IN STABLE MEDICAL CONDITION, A/O X4. V/S TAKEN, STABLE AND RECORDED. IV ACCESS LFA #20G, PATIENT WILL BE ON ANTIBIOTICS CEFTRIAXONE FOR 2 WEEKS. NAME ARM BAND REMOVED. PATIENT SKIN ASSESSMENT DONE AND PICTURE TAKEN, PATIENT HAVE RIGHT UPPER BACK WOUND. ALL BELONGINGS CHECKED AND BELONGINGS LIST SIGNED. HEALTH TEACHING AND DISCHARGE INSTRUCTIONS GIVEN TO PATIENT AND NURSE AT FACILITY AND VERBALIZED UNDERSTANDING. INSTRUCTED PATIENT TO FOLLOW UP WITH DOCTOR. INSTRUCTED PATIENT IN CASE OF EMERGENCY TO CALL 911 OR GO TO THE NEAREST ER. DISCUSSED PRESCRIPTIONS WITH PATIENT. REPORT WAS GIVEN TO MAGALY MCNALLY AT [facility] [phone]. PATIENT LEFT UNIT VIA GURNEY WITH NO SIGNS OF DISTRESS, ACCOMPANIED BY MUSEUM REGISTRAR. CHARGE NURSE AWARE OF DISCHARGE.
== END 2022-10-08 17:08 | DRG 364 ==
LOC: ER 05:19 → MEDSG1 08:59
PROVIDERS: ADMIT Student in an Organized Health Care Education/Training Program; ATTEND Nurse Practitioner Acute Care
PROC: 0KBH0ZZ Excision of Right Thorax Muscle, Open Approach (ICD-10-PCS; principal; 2022-10-03)
DX: L02.212 Cutaneous abscess of back [any part, except buttock and flank] (principal); D68.9 Coagulation defect, unspecified; E44.0 Moderate protein-calorie malnutrition; R78.81 Bacteremia; E87.1 Hypo-osmolality and hyponatremia; E88.09 Other disorders of plasma-protein metabolism, not elsewhere classified; E11.9 Type 2 diabetes mellitus without complications; B95.62 Methicillin resistant Staphylococcus aureus infection as the cause of diseases classified elsewhere; L03.312 Cellulitis of back [any part except buttock and flank]; R59.0 Localized enlarged lymph nodes; T63.301D Toxic effect of unspecified spider venom, accidental (unintentional), subsequent encounter; Z20.822 Contact with and (suspected) exposure to COVID-19; E78.5 Hyperlipidemia, unspecified; I10 Essential (primary) hypertension; K21.9 Gastro-esophageal reflux disease without esophagitis; Z79.899 Other long term (current) drug therapy; D64.9 Anemia, unspecified; N28.1 Cyst of kidney, acquired; Z68.29 Body mass index [BMI] 29.0-29.9, adult
CPT/HCPCS: 36415; 71260-TC; 76882; 80048-TC; 80053-TC; 80076-TC; 80202-TC; 82378; 82607-TC; 82728-TC; 82784; 82962-TC; 83540-TC; 83615-TC; 83735-TC; 84100-TC; 84155; 84165; 84443-TC; 85025-TC; 85396; 85730-TC; 86300; 86334; 87040-TC; 87081-TC; 87806; 88305-TC; 88312-TC; 97112-TC; 97116-TC; 97530-TC; A4217; A4223; A6253; A6402; A6407; C9803; G0378; J0692; J0696; J1100; J1170; J1650; J1815; J2250; J2405; J2543; J2704; J3010; J3370; J3430; J3490; J7030; J7050; J7060; Q9967

== ENCOUNTER 2024-04-05 18:23 | Emergency (ER) | payer OTHER ==
[~2024-04-05] VITALS: Ht 170.2 cm; Wt 77.1 kg
[~2024-04-05 18:23] MED LIST changes: +ACET325T53 PO; +ALPR0.255 PO; +CEFE1FRO IV; -CEPH500C2 PO; +Hydrocodone/Apap 5/325MG PO; -IBUP-1955 PO; +LISI20TA30 PO; +Prosource GT; +SIMV-46 PO; +SODI473S8 TOP; -SULF1TAB48 PO; +VANC1VIA34 IV; +VANC1VIA34 XX
[2024-04-05 18:45] VITALS: BP 141/69; TEMP 97.9; O2SAT 99
[2024-04-05] MEDS ORDERED: CETI-90 PO (19:24)
== END 2024-04-05 19:36 | disposition home or self-care (01) ==
LOC: ER 18:25
DX: S60.562A Insect bite (nonvenomous) of left hand, initial encounter (principal); I10 Essential (primary) hypertension; E78.5 Hyperlipidemia, unspecified; E11.9 Type 2 diabetes mellitus without complications; K21.9 Gastro-esophageal reflux disease without esophagitis; W57.XXXA Bitten or stung by nonvenomous insect and other nonvenomous arthropods, initial encounter; Y93.89 Activity, other specified; Y92.098 Other place in other non-institutional residence as the place of occurrence of the external cause; Y99.8 Other external cause status